=== PATIENT | female | born 1935 | race Caucasian/White ===

== ENCOUNTER 2016-08-14 20:18 | Emergency (ER) | payer MEDICARE ==
--- NOTE | 2016-08-14 20:58 | ERNOTE ---
Dyspnea - Date Date of Service: 08/14/16 - General Presenting Symptoms: shortness of breath, other - chest pain Time Seen by Provider: 08/14/16 20:48 Source: patient, family Exam Limitations: no limitations, other - patient is Hard of hearing - Immun/Allergies/Home Medications Immunizations: IMMUNIZATION HX Immunizations Up to Date Yes Allergies/Adverse Reactions: Allergies Sulfa (Sulfonamide Antibiotics) Allergy (Verified 08/14/16 20:27) Home Medications: HOME MEDICATIONS Cephalexin Monohydrate [Keflex] 500 mg PO Q8H #20 capsule 08/14/16 [Last Taken Unknown] Lisinopril [Prinivil] 40 mg PO BID 08/14/16 [Last Taken Unknown] Metoprolol Tartrate 150 mg PO BID 08/14/16 [Last Taken Unknown] Multivitamins [Multivitamin Dennis] 1 cap PO DAILY 08/14/16 [Last Taken Unknown] [place]-3 Fatty Acids [Fish Oil] 500 mg PO DAILY 08/14/16 [Last Taken Unknown] - History of Present Illness Narrative: Patient is brought to emergency room by her with complaints that she was sitting in chair and suddenly started having a choking feeling chest pain cough shortness of breath and it lasted few minutes and has resolved now. Patient relates for 30 years she has had the choking sometimes she'll choke on while her urine. Has never had EGD scope done in the past No other complaints or issues. Patient is known to have COPD as well and relates that she feels short of breath as well. No fever. No chills no urinary or bowel movement changes no abdominal pain no fall or injury. Severity: mild Frequency of episodes: Reports: occassional episodes Associated Symptoms-Dyspnea: Reports: chest pain/discomfort, anxiety. Denies: fever/chills, sweating, palpitations, cough, wheezing, dizziness, lightheadedness, weakness Review of Systems - Review of Systems Constitutional: Present: no symptoms reported EYE: Present: no symptoms reported Respiratory: Present: shortness of breath. Absent: cough, orthopnea, wheezing Cardiology: Present: chest pain Gastrointestinal/Abdominal: Present: no symptoms reported Genitourinary: Present: no symptoms reported. Absent: frequency, pain, hematuria, decreased urinary output, discharge Musculoskeletal: Present: no symptoms reported Skin: Present: no symptoms reported Neurological: Present: no symptoms reported Psych: Present: no symptoms reported All Other Systems: All systems neg except as marked - Patient's Past Medical History Patient History - Medical: Renal Failure Patient History - Cardiac/Respiratory: Asthma, COPD, Hypertension - Social History Living Situations: home Smoking Status: Former smoker Alcohol Use: none Drug Use: none - Immunizations Immunizations Up to Date: Yes Physical Exam - Physical Exam General Appearance: Present: wd/wn, alert, no apparent distress Eye Exam: Normal inspection: bilateral Ears, Nose, Throat: Present: normal ENT inspection Neck: Present: normal inspection, nontender, supple, full range of motion Respiratory: Present: no respiratory distress, normal breath sounds, no accessory muscle use, chest nontender, lungs clear, rales. Absent: chest tenderness, respiratory distress, accessory muscle use, rhonchi, wheezing Cardiovascular/Chest: Present: regular rate, rhythm Gastrointestinal/Abdominal: Present: normal bowel sounds, nontender, nondistended, soft, no organomegaly Back Exam: Present: normal inspection, normal range of motion Extremity Exam: Present: normal inspection, normal range of motion, no edema Neurological Exam: Present: alert, oriented, normal mood/affect, no motor/ sensory deficits Skin Exam: Present: normal color, warm/dry ED Progress - Results and Orders Patient's Lab Results:: I have reviewed the patient's lab results. - Vital Signs Patient's Vital Signs:: I have reviewed the patient's vital signs. Vital Signs: Vital Signs 08/14/16 20:24 Temperature 37.5 C Pulse Rate 103 H Respiratory 16 Rate Blood Pressure 199/77 O2 Sat by Pulse 96 Oximetry - EKG EKG: NSR EKG read: Reviewed by me - X-Ray X-Ray #1 X-Ray: chest - No acute findings noted, pending radiology report. - Progress/Reassessment Chief Complaint: Dyspnea Progress:: Improved - Patinet has been symptoms free in ER. Departure Clinical Impression: Hyperthyroidism UTI (urinary tract infection) Qualifiers: Urinary tract infection type: acute cystitis Hematuria presence: without hematuria Qualified Code(s): N30.00 - Acute cystitis without hematuria Chest pain Qualifiers: Chest pain type: unspecified Qualified Code(s): R07.9 - Chest pain, unspecified - Departure Disposition: Home self-care Condition: Stable Instructions: Chest Wall Pain, [id number], Hyperthyroidism, Urinary Tract Infection, Adult, [id number] Additional Instructions: Past patient is take Keflex 500 mg 3 times a day. Follow up with your doctor for further evaluation on thyroid. Also need further evaluation regarding his recurrent choking that your head.. However if chest pain recurs please return back to emergency room. He tried to emergency room if worse in any way Referrals: Marshall Puente MD [Primary Care Provider] - Prescriptions: Cephalexin Monohydrate [Keflex] 500 mg PO Q8H #20 capsule
[2016-08-14 21:13] LABS: Hematocrit 41.3 % (37.0-47.0); Hemoglobin 13.8 gm/dL (12.5-16.0); Mean Cell Volume 89.4 fl (78-100); Mean Corpuscular Hemoglobin 29.9 pg (27-31); Mean Corpuscular Hgb Conc 33.4 g/dl (32-36); Mean Platelet Volume 9.9 fl (6.0-9.5); Neutrophil # 5.1 K/mm3 (1.3-6.0); Neutrophil % 53.8 % (42-75.0); Platelet Count 266 K/mm3 (150-450); Red Blood Count 4.62 M/mm3 (4.2-5.4); White Blood Count 9.5 K/mm3 (4.0-10.5)
[2016-08-14 21:24] LABS: Prothrombin Time (Patient) 11.1 Seconds (9.4-11.4)
[2016-08-14 21:28] LABS: INR 1.07 INR (0.90-1.10); Partial Thrombolplastin Time 29.2 Seconds (24-32)
[2016-08-14 21:32] LABS: Troponin I Less than 0.017 ng/ml (0.00-0.10)
[2016-08-14 21:52] LABS: Urine Bilirubin Negative (NEGATIVE); Urine Ketone Negative (NEGATIVE); Urine Nitrite Negative (NEGATIVE); Urine Protein Negative (NEGATIVE); Urine Urobilinogen Normal (NORMAL); Urine pH 5.5 pH (5.0-7.0)
[2016-08-14 21:52] LABS: ALT 27 U/L (19-67); AST 24 U/L (0-48); Albumin * 3.5 gm/dl (3.4-5.0); Alkaline Phosphatase * 90 U/L (50-170); Amylase * 83 U/L (25-115); Anion Gap 14.4 mmol/L (6.8-13.8); BNP * 366 pg/mL (5-550); BUN/Creatinine Ratio 16.2 (9.0-21.6); Bilirubin, Total 0.4 mg/dL (0.0-1.1); Blood Urea Nitrogen 16 mg/dL (3-23); CK Total * 82 U/L (0-259); CKMB 1.6 ng/mL (0.0-9.0); CRP 0.8 mg/dL (0.0-0.9); Ca. Corrected For Albumin 9.3 mg/dL (8.4-10.2); Calcium * 9.2 mg/dL (7.9-10.9); Carbon Dioxide 25.8 mmol/L (24-32.6); Chloride 105 mmol/L (97-106); Glucose * 110 mg/dL (70-110); Lipase 185 U/L (73-393); Potassium 4.2 mmol/L (3.4-4.6); Sodium 141 mmol/L (132-142); TSH * 0.027 uIU/mL (0.358-3.74); Total Protein 7.3 gm/dL (6.2-8.2)
--- OUTSIDE RECORDS SUMMARY | 2016-08-14 22:12 | XMS REPORT | Continuity of Care Document ---
:1935 Author Organization [facility] [place] [address] Care Team Providers Name Role Phone Unavailable Primary Care Provider Unavailable Source Comments This disclosure is being made pursuant to the [employer] program and maynot contain all information available regarding this patient.[facility] Active Allergies and Adverse Reactions Not on File Current Medications Be aware that medications may not be up to date as of this document. Alwaysverify current medications with the patient. Not on file Active Problems Not on file Social History Tobacco Use Types Packs/Day Years Used Date Former Smoker Last Filed Vital Signs Vital Sign Reading Time Taken Blood Pressure 142/70 10/15/2012 2:03 PM CDT Pulse 73 10/15/2012 2:03 PM CDT Temperature - - Respiratory Rate - - Height 1.549 m (5' 1") 10/15/2012 1:58 PM CDT Weight 68.493 kg (151 lb) 10/15/2012 1:58 PM CDT Body Mass Index 28.55 10/15/2012 1:58 PM CDT Oxygen Saturation - - Plan of Care Health Maintenance Due Date Last Done Comments Retired-Pertussis Vaccine Adult 1954 Retired-Tetanus Vaccine Adult 1954 Well Adult Visit 1985 Zoster Vaccine 60+ 1995 Bone Density 2000 Retired-Pneumococcal 23 Vaccine-65+ yo 2000 Retired-INFLUENZA VACCINE 01/25/2015 Results from Last 3 Months Not on file
--- OUTSIDE RECORDS SUMMARY | 2016-08-14 22:18 | XMS REPORT | Continuity of Care Document ---
:1935 Author Organization [facility] ([facility]) Address [address] [place] [address] Phone [phone] Care Team Providers Name Role Phone Unavailable Primary Care Provider Unavailable Source Comments This disclosure is being made pursuant to the Care Everywhere program, applicable federal and state laws, and may not contain all informaitonavailable regarding this patient.[facility] ([facility]) Active Allergies and Adverse Reactions Allergen Noted Date Severity Reactions Comments Sulfadoxine Urticaria (Hives) Current Medications Not on file Active Problems Not on file Social History Tobacco Use Types Packs/Day Years Used Date Never Assessed Last Filed Vital Signs Vital Sign Reading Time Taken Blood Pressure - - Pulse - - Temperature - - Respiratory Rate - - Height - - Weight 73.696 kg (162 lb 7.5 oz) 08/22/1998 9:42 AM [employer] Body Mass Index - - Oxygen Saturation - - Plan of Care Health Maintenance Due Date Last Done Comments Hepatitis B Vaccine (1 of 3 - Primary Series) 1935 Tdap Vaccine 1946 Lipid Disorder Screening 1953 Td Vaccine 1953 Colonoscopy 03/12/1985 Zoster Vaccine 1995 Osteoporosis Screening (DXA Bone Density) 2000 Pneumococcal Vaccine (1 of 2 - PCV13) 2000 Influenza Vaccine: Seasonal (#1) 12/26/2015 Results from Last 3 Months Not on file
[2016-08-14 22:22] LABS: Urine Appearance Clear; Urine Bacteria 1+; Urine Blood 10 /ul (NEGATIVE); Urine Color Yellow; Urine RBC 0-5 /hpf (0-5)
[2016-08-15 00:10] VITALS: BP 161/66
== END 2016-08-14 23:45 | disposition home or self-care (01) ==
LOC: ER 20:18
DX: E05.90 Thyrotoxicosis, unspecified without thyrotoxic crisis or storm (principal); N30.00 Acute cystitis without hematuria; R07.9 Chest pain, unspecified; Z87.891 Personal history of nicotine dependence; I10 Essential (primary) hypertension

== ENCOUNTER 2016-10-08 08:18 | Day surgery (SDC) | payer MEDICARE ==
[~2016-10-08 08:18] MED LIST: ACETAMINOPHEN 325 MG TABLET PO PRN; ACETYLCHOLINE CHLORIDE 20 DROP KIT IO PRN; BUPIVACAINE HCL/PF 30 ML VIAL IJ PRN; CYCLOPENTOLATE HCL 20 DROP BTL RIGHTEYE PRN; DEXTROSE 5%-0.5 NORMAL SALINE 1,000 ML IV PRN; EPINEPHrine 1 MG/ML AMPUL IO PRN; HYALURONATE SODIUM 0.4 ML DISP.SYRIN IO PRN; HYALURONATE SODIUM 0.85 ML DISP.SYRIN IO PRN; LIDOCAINE HCL/PF 200 MG/5 ML AMPUL TP PRN; LIDOCAINE HCL/PF 5 ML VIAL IO PRN; NORMAL SALINE 3 ML BOX IV PRN; TETRACAINE HCL 150 DROP BTL OP PRN
--- OUTSIDE RECORDS SUMMARY | 2016-10-08 08:22 | XMS REPORT | Continuity of Care Document ---
:1935 Author Organization [facility] Address [place] [address] Care Team Providers Name Role Phone Unavailable Primary Care Provider Unavailable Source Comments This disclosure is being made pursuant to the [employer] program and maynot contain all information available regarding this patient.[facility] Active Allergies and Adverse Reactions Not on [...]
--- OUTSIDE RECORDS SUMMARY | 2016-10-08 08:22 | XMS REPORT | Continuity of Care Document ---
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
[2016-10-08] MEDS ORDERED: DEXTROSE 5%-0.5 NORMAL SALINE 1,000 ML IV ONE (08:54)
[2016-10-08] MEDS: TROPICAMIDE 150 DROP BTL RIGHTEYE PRN ×3 (08:58→09:23)
[2016-10-08] MEDS: PHENYLEPHRINE HCL 50 DROP BTL RIGHTEYE PRN ×3 (08:58→09:23)
[2016-10-08 11:20] VITALS: BP 101/43
== END 2016-10-08 08:19 | disposition home or self-care (01) ==
LOC: AMB 08:18
PROVIDERS: ATTEND Ophthalmology
PROC: 08RJ3JZ Replacement of Right Lens with Synthetic Substitute, Percutaneous Approach (ICD-10-PCS; principal; 2016-10-08 09:20)
DX: H26.9 Unspecified cataract (principal); I12.9 Hypertensive chronic kidney disease with stage 1 through stage 4 chronic kidney disease, or unspecified chronic kidney disease; N18.3 Chronic kidney disease, stage 3 (moderate); J44.9 Chronic obstructive pulmonary disease, unspecified; J45.30 Mild persistent asthma, uncomplicated; Z87.891 Personal history of nicotine dependence; Z68.24 Body mass index [BMI] 24.0-24.9, adult

== ENCOUNTER 2016-11-05 09:35 | Day surgery (SDC) | payer MEDICARE ==
[~2016-11-05 09:35] MED LIST changes: +CYCLOPENTOLATE HCL 20 DROP BTL LEFTEYE PRN; -CYCLOPENTOLATE HCL 20 DROP BTL RIGHTEYE PRN
--- OUTSIDE RECORDS SUMMARY | 2016-11-05 09:38 | XMS REPORT | Continuity of Care Document ---
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
--- OUTSIDE RECORDS SUMMARY | 2016-11-05 09:38 | XMS REPORT | Continuity of Care Document ---
:1935 Author Organization [facility] Address [place] [address] Care Team Providers Name Role Phone Unavailable Primary Care Provider Unavailable Source Comments This disclosure is being made pursuant to the [employer] program and maynot contain all information available regarding this patient.[facility] Active Allergies and Adverse Reactions Not on [...]
[2016-11-05] MEDS: TROPICAMIDE 150 DROP BTL LEFTEYE PRN ×3 (09:52→10:14)
[2016-11-05] MEDS: PHENYLEPHRINE HCL 50 DROP BTL LEFTEYE PRN ×3 (09:52→10:14)
[2016-11-05] MEDS ORDERED: DEXTROSE 5%-0.5 NORMAL SALINE 1,000 ML IV ONE (10:10)
[2016-11-05 13:44] VITALS: BP 108/44
== END 2016-11-05 09:36 | disposition home or self-care (01) ==
LOC: AMB 09:35
PROVIDERS: ATTEND Ophthalmology
PROC: 08RK3JZ Replacement of Left Lens with Synthetic Substitute, Percutaneous Approach (ICD-10-PCS; principal; 2016-11-05 10:45)
DX: H26.9 Unspecified cataract (principal); I12.9 Hypertensive chronic kidney disease with stage 1 through stage 4 chronic kidney disease, or unspecified chronic kidney disease; N18.3 Chronic kidney disease, stage 3 (moderate); J45.30 Mild persistent asthma, uncomplicated; J44.9 Chronic obstructive pulmonary disease, unspecified; M19.91 Primary osteoarthritis, unspecified site; Z87.891 Personal history of nicotine dependence; Z68.24 Body mass index [BMI] 24.0-24.9, adult

== ENCOUNTER 2019-12-16 07:13 | Observation (INO) ==
[~2019-12-16 07:13] MED LIST changes: -ACETAMINOPHEN 325 MG TABLET PO PRN; -ACETYLCHOLINE CHLORIDE 20 DROP KIT IO PRN; -BUPIVACAINE HCL/PF 30 ML VIAL IJ PRN; -CYCLOPENTOLATE HCL 20 DROP BTL LEFTEYE PRN; -DEXTROSE 5%-0.5 NORMAL SALINE 1,000 ML IV PRN; -EPINEPHrine 1 MG/ML AMPUL IO PRN; -HYALURONATE SODIUM 0.4 ML DISP.SYRIN IO PRN; -HYALURONATE SODIUM 0.85 ML DISP.SYRIN IO PRN; -LIDOCAINE HCL/PF 200 MG/5 ML AMPUL TP PRN; -LIDOCAINE HCL/PF 5 ML VIAL IO PRN; +MORPHINE SULFATE 15 MG TABLET.SA PO PRN; -NORMAL SALINE 3 ML BOX IV PRN; +ROPIVACAINE HCL/PF 100 MG, EPINEPHrine 0.2 MG, KETOROLAC TROMETHAMINE 30 MG in NORMAL S... IJ PRN; -TETRACAINE HCL 150 DROP BTL OP PRN; +TRANEXAMIC ACID 1,000 MG in NORMAL SALINE 100 ML IV PRN; +ceFAZolin SODIUM 1 GM VIAL IV PRN; +ceFAZolin SODIUM 1 GM VIAL ONE
[2019-12-16] MEDS ORDERED: ceFAZolin SODIUM 1 GM VIAL ONE (07:15)
[2019-12-16] MEDS ORDERED: PROPOFOL VIAL IV ONE (08:01)
[2019-12-16] MEDS ORDERED: LIDOCAINE HCL 20 ML VIAL ONE (08:01)
[2019-12-16] MEDS ORDERED: BUPIVACAINE HCL/PF 10 ML VIAL ONE (08:01)
[2019-12-16] MEDS ORDERED: MIDAZOLAM HCL/PF 5 MG/ML VIAL ONE (08:02)
[2019-12-16] MEDS: RINGER'S SOLUTION,LACTATED 1,000 ML IV PRN ×2 (08:14→09:45)
--- NOTE | 2019-12-16 08:30 | ANES ---
Anesthesia Pre Procedure Eval Vitals/Labs: Last Vital Signs Temp 37.3 C 12/16/19 07:44 Pulse 61 12/16/19 07:44 Resp 18 12/16/19 07:44 BP 139/57 12/16/19 07:44 Pulse Ox 97 12/16/19 07:44 HOME MEDICATIONS Multivitamins [Multivitamin Dennis] 1 cap PO DAILY 08/14/16 [Last Taken 12/15/19] Cholecalciferol (Vitamin D3) [Vitamin D] 2,000 unit PO DAILY 10/02/16 [Last Taken 12/15/19] [place]-3 Fatty Acids/Fish Oil [Fish Oil 1,000 mg Capsule] 1 ea PO DAILY 10/02/16 [Last Taken 12/15/19] melatonin 3 mg tablet 3 mg PO HS 04/30/18 [Last Taken Unknown] topiramate 25 mg tablet 25 mg PO BID 7 Days #14 tab 03/27/19 [Last Taken 12/16/19] albuterol sulfate 90 mcg/actuation aerosol inhaler 1 puff IH QID PRN #18 g 07/14/19 [Last Taken Unknown] hydrocodone 5 mg-acetaminophen 325 mg tablet 1 tab PO Q8H PRN 10/06/19 [Last Taken Unknown] valsartan 320 mg tablet 320 mg PO DAILY 10/06/19 [Last Taken 12/16/19] Allergies/Adverse Reactions: Allergies Allergy/AdvReac Type Severity Reaction Status Date / Time Sulfa (Sulfonamide Allergy Mild rash Verified 12/16/19 07:52 Antibiotics) amlodipine AdvReac Mild ankle Verified 12/16/19 07:52 swelling - Planned Procedure Planned Procedure: Left Total Hip Arthroplasty Medication List Reviewed:: Yes Allergies Verified: Yes Medical History (Last Reviewed 12/16/19 @ 08:29 by Sav Nixon CRNA) Dependent edema (Chronic) Overactive bladder due to prolapse of female genital organ (Chronic) Family history of hemochromatosis (Chronic) Influenza vaccine refused (Acute) Onset Date: 04/16/18 Hard of hearing (Chronic) Onset Date: 04/16/18 Allergic rhinitis (Chronic) Onset Date: Unknown Mild intermittent asthma with (acute) exacerbation (Chronic) Onset Date: 02/28/15 Bilateral carotid bruits (Chronic) Onset Date: 08/06/14 Bilateral sensorineural hearing loss (Chronic) Onset Date: Unknown Chronic renal failure, stage 3 (moderate) (Chronic) Onset Date: 05/04/13 Constipation (Chronic) Onset Date: Unknown COPD (chronic obstructive pulmonary disease) (Chronic) Onset Date: 03/11/12 Dysphagia (Chronic) Onset Date: Unknown Essential hypertension (Chronic) Onset Date: 02/28/15 Fatigue (Chronic) Onset Date: 03/25/12 Medial meniscus tear (Inactive) Onset Date: 2011 Migraine (Inactive) Onset Date: 08/06/14 believe this gave her the "TIA" like sx, but could be true TIA given carotid bruits, keep neurology appt. Osteoarthritis (Chronic) Onset Date: Unknown primary involving multiple joints TIA (transient ischemic attack) (Inactive) Onset Date: 07/14/14 Dysuria (Acute) Bilateral carotid bruits (Chronic) Trochanteric bursitis, left hip (Acute) Fatigue (Acute) Frequent headaches (Chronic) Back pain (Chronic) Hyperthyroidism (Chronic) UTI (urinary tract infection) (Acute) Chest pain (Acute) Surgical History (Last Reviewed 12/16/19 @ 08:29 by Sav Nixon CRNA) Hx of appendectomy (Inactive) Onset Date: Unknown H/O colonoscopy (Inactive) Onset Date: 05/08/182003 polyps. 07/03/06 Peasley-normal. 05/08/18 Dottie-normal. H/O: hysterectomy (Inactive) Onset Date: Unknown H/O arthroscopy of right knee (Inactive) Onset Date: 10/12/11 History of esophagogastroduodenoscopy (EGD) Onset Date: 05/08/18 10/16/16 Peasley-negative. 05/08/18 Dottie-clotest negative. Status post epidural steroid injection Onset Date: 08/11/04 C5-6 Family History (Last Reviewed 12/16/19 @ 08:29 by Sav Nixon CRNA) Sister Brain tumor Father COPD (chronic obstructive pulmonary disease) Mother Brain tumor - Family Anesthesia History Family History:: no untoward family reactions to anesthesia - Airway/Neck/Teeth Within Normal Limits:: Yes Teeth Condition: missing Neck Exam: full range of motion Mallampatti Score: 2 Thyromental (T-M) distance: > 6 cm Mandibulo Hyoid distance: > 3 cm - Respiratory Respiratory Physical: decreased breath sounds Smoking Status: Former smoker Sleep Apnea currently treated: No Sleep Apnea by current assessment: No - Cardiovascular Tolerate Activity: Fair Heart Sounds: S1 & S2, Regular - Gastrointestinal NPO since: MN - Anesthesia Assessment and Plan ASA Class: PS, III Anesthesia Type Plan: Spinal Planned difficult intubation/equipment available: No
[2019-12-16] MEDS ORDERED: MAG HYDROX/ALUMINUM HYD/SIMETH 30 ML UDC PO PRN (11:52)
[2019-12-16] MEDS ORDERED: ACETAMINOPHEN 500 MG TABLET PO PRN (11:52)
[2019-12-16] MEDS ORDERED: ONDANSETRON HCL/PF 2 MG/ML VIAL IV PRN (11:52)
[2019-12-16] MEDS ORDERED: HYDROcodone/ACETAMINOPHEN 1 EACH TABLET PO PRN (11:52)
[2019-12-16] MEDS ORDERED: MAGNESIUM HYDROXIDE 30 ML UDC PO PRN (11:52)
[2019-12-16] MEDS ORDERED: MORPHINE SULFATE 2 MG/ML DISP.SYRIN IV PRN (11:52)
[2019-12-16] MEDS ORDERED: DEXTROSE 5%-LACTATED RINGERS 1,000 ML IV PRN (11:52)
[2019-12-16] MEDS ORDERED: ALBUTEROL SULFATE 2.5 MG/0.5 ML VIAL.NEB IH PRN (11:54)
--- NOTE | 2019-12-16 11:57 | OR ---
Operative Report - Dictated Report Narrative: Date: 12/16/2019 Preoperative diagnosis: Left hip degenerative joint disease. Postoperative diagnosis: Left hip degenerative joint disease. Procedure: Left total hip arthroplasty. Surgeon: Denton García M.D. Hat Sizer: Benji Wilkerson PA-C (provided an essential set of skilled, educated and assisted with transfer, positioning, prepping, draping, manipulation, traction, irrigation, suturing, and placement of dressings all of which cannot be performed by the available surgical crew) Anesthesia: Spinal and local periarticular joint injection. Complications: None Specimens: Bone. Estimated blood loss: 75 milliliters. Retained implants: Depuy [place] size 4 femoral stem standard offset. Size 48 millimeter outside diameter 3-hole [place] Gription acetabular cup. 48 millimeter outside by 32 millimeter inside diameter highly cross-linked acetabular liner. 32 millimeter diameter +1.5 millimeter cobalt chromium femoral head. Cancellous 6.5mm screw 30 millimeter length Indications: Mrs. Cruz is a 84-year-old female who has had longstanding left hip pain and arthrosis. This patient was followed in my clinic for period of time with significant complaints of left hip pain consistent with arthritic changes. She failed conservative measures including but not limited to activity modification, passage of time, medications, and other conservative measures. Patient wished to proceed with surgical treatment. The risks, benefits, and alternatives were discussed in clinic. The risks of , blood clots, bleeding, infection, nerve/tendon blood vessel/ injury, malposition of components, dislocation and/or instability of joint, intraoperative fracture, postoperative limited range of motion, persistent pain, failure of components, and need for additional procedures. Patient wished to proceed. Consent was obtained after answering all questions. Procedure: After marking the correct extremity on the floor, the patient was taken to the operating room. A timeout was performed. IV antibiotics consisting of Ancef were administered prior to the procedure. A spinal anesthetic was induced by anesthesia. A Duvall catheter was inserted. The patient was then transitioned to a lateral position on a well-padded pegboard. An axillary roll was placed. The head was in neutral position. The non- operative down leg was well-padded with SCD and SHAUN hose in place. The arms were supported and padded to protect from any undue pressure on the bony prominences and nerves. A well-padded anterior and posterior pelvic and chest posts were secured in order to maintain a stable position of the pelvis. This was placed so that the pelvis was perpendicular to the floor. The body was in line with the pelvis. Once it was felt that we had protected all the bony prominences and the patient was well secured with a safety belt as well, the leg was pre-scrubbed with alcohol, prepped and draped in a standard sterile fashion. A standard anterior lateral hip incision was marked out over the greater trochanter. Ioban drapes were then placed. The skin incision was then made. Sharp dissection with a scalpel utilizing cautery for hemostasis was carried out down to the gluteus and iliotibial band fascia. This was split in line with the skin incision. The greater trochanter bursa was excised. The anterior and posterior margins of the abductor tendon were identified. The anterior 1/2-1/3 of the tendon was tagged and reflected off the greater trochanter leaving a sleeve of tendon for repair at the completion of the case. This exposed the underlying hip joint capsule. A limb length stitch was placed in the skin and referencedd off a crystal on the greater trochanter for evaluation of intraoperative limb lengths. An inverted T-type capsulotomy was made extending this up to the brim of the acetabulum. Using Homans to assist with elevation of the soft tissues off the anterior, superior, and inferior aspects of the femoral neck, the hip was then placed in a figure 4 position and the femoral head was dislocated. With the leg in an externally rotated and adducted position, the cutting flag was utilized in order to crystal for a standard femoral neck cut approximately a fingerbreadth above the level of the lesser trochanter. This was done with reference to pre-operative films and overall alignment. This was done while protecting the surrounding soft tissues with Homans. The femoral head was then removed and sized for guidance on preparation of the acetabulum. It was noted that there was loss of articular cartilage on both the femoral head and weightbearing portions of the acetabulum. We then returned the leg to the table and turned our attention to the acetabulum. While protecting the surrounding soft tissues, the labrum and remaining tissue in the fovea were excised using a scalpel and cautery. A series of reamers up to size 48 millimeter were utilized to prepare the acetabulum. The final reamer had good purchase and exposed the bleeding subchondral bone. The acetabulum was then thoroughly irrigated ensuring that all bony and cartilaginous materials were removed, and the final acetabular shell was impacted into place. This was placed in approximately 45 degrees of abduction and 20 degrees of anteversion utilizing the outrigger and body axis for alignment. This had a good press fit. 1 6.5mm cancellous screw was placed in the superior posterior quadrant of the acetabulum. The shell was then thoroughly irrigated and the final polyethylene was impacted into place ensuring that it seated completely. This was then protected with a sponge while we returned our attention to the femur. With the leg in a figure 4 position, utilizing Homans for soft tissue protection, a box cutting osteotome, followed by Charnley awl, followed by serial reamers and broaches were utilized in order to prepare the femur. It was found that a size 4 broach gave good axial and rotational stability. The calcar reamer was utilized in order to clean up the cut edges. The proximal femur was visualized to ensure that there were no signs of fracture. A series of heads and necks were trialed. It was found that a standard offset neck and a + 1.5 femoral head gave good overall stability. There was minimal longitudinal instability. With the leg in the position of sleep, the femoral head was well covered. Hip range of motion was able to reach full extension and external rotation to greater than 75 degrees prior to impingement along the posterior acetabulum. The hip was able to be flexed to greater than 90 degrees with internal rotation greater than 60 degrees prior to anterior impingement. The limb lengths were near equal based on comparison to the contralateral side and the prior placed limb length stitch. At this point it was felt these were the appropriately sized femoral components as well as neck and femoral head. The trial implants were removed. The femur was thoroughly irrigated. The final implants were impacted into place, and the hip was reduced. After ensuring that there was no damage to the proximal femur, the standard periarticular joint injection of ropivacaine, Toradol, and epinephrine were injected into the joint capsule and surrounding soft tissues. Anesthesia then administered intravenous tranexamic acid. The capsule was repaired with a single interrupted #1 Vicryl. The abductor tendon was repaired to the greater trochanter utilizing #5 Ethibond through drill holes. This was oversewn with #1 Vicryl. The fascia was closed with interrupted #1 Vicryl and strata fix barbed suture. The wounds were thoroughly irrigated as we closed in layers. The deep and subcutaneous fat layers were closed with 0 and 3-0 Vicryl respectively. The subcutaneous tissue was closed with a running 3-0 Vicryl and the skin jannette. All sponge, needle, blade, and instrument counts were correct prior to closing the wounds. Sterile dressings consisting of xeroform, 4 x 4's, and tape were applied. The patient was awoken and transferred to her hospital bed and then to the postanesthesia care unit in stable condition. Postoperative condition: The plan is to admit to the medical/surgical inpatient floor postoperatively. There will be a projected 1 to 3 day hospital stay. Pos toperatively 24 hours of IV antibiotics, pain control, physical therapy, occupational therapy, and medical comanagement will be utilized. Patient will be weightbearing as tolerated with anterior hip precautions. Postoperative films will be obtained in the recovery room.
[2019-12-16] MEDS: KETOROLAC TROMETHAMINE 15 MG/ML VIAL IV SCH ×2 (12:42→17:29)
--- NOTE | 2019-12-16 13:43 | ANES ---
Post Anesthesia Discharge - Transfer of Care Transfer of Care handoff given to nurse: Yes - Discharge from PACU Discharge from PACU when meets criteria: Yes
--- NOTE | 2019-12-16 13:43 | ANES ---
Post Anesthesia Assessment - Vital Signs Vitals: Last Vital Signs Temp 36.0 C 12/16/19 12:20 Pulse 62 12/16/19 12:20 Resp 16 12/16/19 12:20 BP 137/40 12/16/19 12:20 Pulse Ox 99 12/16/19 12:20 Airway Patency: Normal - Mental Status Level Of Consciousness: Awake - Pain Level Pain Score: 0 - N/V Assessment Nausea/Vomiting Presence: None Dehydration:: No
[2019-12-16] MEDS: ceFAZolin SODIUM 1 GM in DEXTROSE 5 % IN WATER 100 ML IV SCH ×4 (14:13→19:13)
[2019-12-16] MEDS ORDERED: [UNRECOGNIZED DRUG - OTHER] PO SCH (17:00)
[2019-12-16] MEDS ORDERED: MELATONIN 3,000 MCG TABLET PO SCH (21:00)
[2019-12-16] MEDS ORDERED: SENNOSIDES/DOCUSATE SODIUM 1 TAB TABLET PO SCH (21:00)
[2019-12-16] MEDS: TOPIRAMATE 50 MG TABLET PO SCH (21:32)
[2019-12-17] MEDS: ceFAZolin SODIUM 1 GM in DEXTROSE 5 % IN WATER 100 ML IV SCH ×2 (00:57)
[2019-12-17] MEDS: KETOROLAC TROMETHAMINE 15 MG/ML VIAL IV SCH ×3 (00:57→11:05)
[2019-12-17 06:51] LABS: Hematocrit 38.7 % (37.0-47.0); Hemoglobin 12.9 gm/dL (12.5-16.0); Mean Cell Volume 94.4 fl (78-100); Mean Corpuscular Hemoglobin 31.5 pg (27-31); Mean Corpuscular Hgb Conc 33.3 g/dl (32-36); Mean Platelet Volume 10.3 fl (8-12.5); Platelet Count 196 K/mm3 (150-450); Red Cell Distribution Width 13.2 % (11.5-14.0); White Blood Count 12.3 K/mm3 (4.0-10.5)
[2019-12-17 07:34] LABS: Anion Gap 9.9 mmol/L (6.8-13.8); Calcium * 8.5 mg/dL (7.9-10.9); Estimated Creat Clear 29.3; Potassium 3.9 mmol/L (3.4-4.6)
[2019-12-17] MEDS: TOPIRAMATE 50 MG TABLET PO SCH (08:08)
[2019-12-17] MEDS ORDERED: OMEGA-3 FATTY ACIDS 1 CAP CAPSULE PO SCH (09:00)
[2019-12-17] MEDS ORDERED: LOSARTAN POTASSIUM 50 MG TABLET PO SCH (09:00)
[2019-12-17] MEDS ORDERED: MULTIVITAMINS 1 CAP CAPSULE PO SCH (09:00)
[2019-12-17] MEDS ORDERED: CHOLECALCIFEROL 1,000 UNIT CAPSULE PO SCH (09:00)
[2019-12-17] MEDS ORDERED: ENOXAPARIN SODIUM 40 MG/0.4 ML SYRG SC SCH (10:52)
--- NOTE | 2019-12-17 12:55 | DS ---
(1) Status post left hip replacement Problem: Acute (2) Hard of hearing Problem: Chronic (3) Chronic renal failure, stage 3 (moderate) Problem: Chronic (4) COPD (chronic obstructive pulmonary disease) Problem: Chronic Qualifiers: (5) Essential hypertension Problem: Chronic (6) Hyperthyroidism Problem: Chronic Hospital Course: Mrs. Sage was admitted to the floor after undergoing left total hip arthroplasty. Tolerated this well. Was admitted to the floor postoperatively for 24 hours of IV antibiotics, pain control, medical comanagement, and occupational and physical therapy. OT and PT were consulted to assist with activities of daily living and ambulation. Was made weightbearing as tolerated with range of motion as tolerated utilizing anterior hip precautions. Pain was initially controlled with IV regimen. This was transitioned to oral once tolerating a by mouth intake. Was resumed on home diet and medications. Had a Duvall catheter inserted and the operating room which was discontinued on postoperative day 1. Lovenox SCD and SHAUN hose were utilized for DVT prophylax is. Vital signs remained stable to the hospital course. Serial labs were obtained which showed a final hemoglobin of 12.9 grams. BMP was reviewed and was stable. Physical examination throughout the hospital course showed an extremity that had sensation that was intact to light touch, palpable pulses, a benign wound, motor intact to the toes, ankle, and knee. Once an oral pain regimen was tolerated and physical therapy goals were met, it was felt that they were stable for discharge to home. Instructions: Continue with weightbearing as tolerated and range of motion as tolerated utilizing anterior hip precautions. Keep wound clean and dry. If you note any drainage or for comfort you can cover with dry gauze and tape. Change every 2-3 days as needed. Continue with physical therapy. Resume home diet. Report any fever over 101.5 Fahrenheit, uncontrolled pain, increased drainage, foul odor of drainage, new or increased calf pain or shortness of breath, or any other significant complaints. A 325mg dialy aspirin will be started after finishing anticoagulation if not allergic and can tolerate. Continue with SHAUN hose on the operative extremity until instructed otherwise. No driving until instructed otherwise. Follow up in approximately 10-14 days. Patient is in need for mcfp through home health for dressing changes as well as assistance with activities of daily living. She is in need of physical therapy for ambulation, strengthening as well as range of motion status post left hip replacement. The need for home health care skilled services is directly related to time spent [id number] with Mrs. Cruz. Procedures Performed: see notes below List Procedures: Left total hip arthroplasty Results and Findings: Lab Pending Results 12/16/19 07:25: SARS-CoV-2 (PCR) Not detected 12/17/19 06:43: WBC 12.3 H, RBC 4.10 L, Hgb 12.9, Hct 38.7, MCV 94.4, MCH 31.5 H, MCHC 33.3, RDW 13.2, Plt Count 196, MPV 10.3 12/17/19 06:43: Sodium 137, Plasma Sodium 138, Potassium 3.9, Chloride 103, Carbon Dioxide 28.0, Anion Gap 9.9, BUN 13, Creatinine 1.08, Est GFR (Non-Af Amer) 51 L D, BUN/Creatinine Ratio 12.0, Random Glucose 137 H, Calcium 8.5 Discharge Location: Home Disposition: Home Health Service Home Health Agency: [facility] Home Health Condition: Good Discharge Activity: Weight bearing, Other - Utilizing anterior precautions with wheeled walker Discharge Diet: Low salt, Low fat/chol Referrals: Jasper Alva DO [Primary Care Provider] - RickyDenton stover MD [Staff Physician] - 12/31/19 9:00 am Additional Patient Instructions (free text): [facility]. Please call report and fax orders, records from stay and facesheet with SS number written on it upon discharge. PH:[phone]. . Follow up Orthopedic office appointment on December 30 at 9:00am. Prescriptions (Any new or edited meds): Enoxaparin Sodium [Lovenox] 40 mg SC Q24H #7 disp.syrin Transmission Status: Pending to [facility] - [place], [place] HYDROcodone/ACETAMINOPHEN [Bessemer 5-325] 1 ea PO Q3H PRN #56 tab PRN Reason: Moderate Pain (Pain Scale 4-6) Transmission Status: Sent to [facility] - [place], [place] Complete Home Medications List: Complete Home Medication List: Multivitamins [Multivitamin Dennis] 1 cap PO DAILY 08/14/16 Cholecalciferol (Vitamin D3) [Vitamin D3] 2,000 unit PO DAILY 10/02/16 Jackson-3 Fatty Acids/Fish Oil [Fish Oil 1,000 mg Capsule] 1 ea PO DAILY 10/02/16 melatonin 3 mg tablet 3 mg PO HS 04/30/18 topiramate 25 mg tablet 25 mg PO BID 7 Days #14 tab 03/27/19 albuterol sulfate 90 mcg/actuation aerosol inhaler 1 puff IH QID PRN #18 g 07/14/19 valsartan 320 mg tablet 320 mg PO DAILY 10/06/19 Enoxaparin Sodium [Lovenox] 40 mg SC Q24H #7 disp.syrin 12/17/19 HYDROcodone/ACETAMINOPHEN [Bessemer 5-325] 1 ea PO Q3H PRN #56 tab 12/17/19 Amb Orders for Discharge: PT Evaluation and Treatment* Facility: [facility], Location: Rehabilitation Services Forms: Patient Portal Registration
[2019-12-17 15:03] VITALS: BP 146/50
== END 2019-12-17 13:50 | disposition home health service (06) ==
LOC: SUR 07:13 → MS 07:13
PROVIDERS: ADMIT Orthopaedic Surgery; ATTEND Orthopaedic Surgery
CPT/HCPCS: 36415; 73502; 80048; 85027; 96365; 96366; 96375; 96376; 97110; 97116; 97161; 97165; C9803; G0378